=== PATIENT | male | born 1960 | race African-American/Black ===

== ENCOUNTER → 2025-01-05 11:07 | Outpatient (REF) | payer OTHER, SELFPAY ==
[2025-01-05 22:45] LABS: Rubella Positive
[2025-01-07 08:43] LABS: Quantiferon Mitogen minus NIL 9.97 IU/mL; Quantiferon NIL 0.03 IU/mL; Quantiferon TB Gold Plus Negative (Negative)
== END ==
LOC: OHS 11:07
PROVIDERS: ATTENDING PHYSICIAN Nurse Practitioner Family
DX: Z23 Encounter for immunization (principal)
CPT/HCPCS: 36415; 86480; 86735; 86762; 86765; 86787